=== PATIENT | female | born 1970 | race Caucasian/White ===

== ENCOUNTER 2016-07-28 21:13 | Emergency (ER) | payer MEDICAID, OTHER, SELFPAY ==
[2016-07-28 21:13] VITALS: BMI 29.8
[2016-07-28] MEDS ORDERED: Sodium Chloride 0.9% 1,000 ML IV STA (21:53)
--- NOTE | 2016-07-28 22:13 | ED PDOC ---
HPI: Headache Time Seen by Provider: 07/28/16 21:34 Chief Complaint (Nursing): Headache Chief Complaint (Provider): Headache History Per: Patient History/Exam Limitations: no limitations Onset/Duration Of Symptoms: Days (x3), Waxing/Waning Current Symptoms Are (Timing): Still Present Severity: Moderate Associated Symptoms: Nausea, Vomiting (several episodes, non-bloody). denies: Other (no fever, abdominal pain) Additional Complaint(s): Evelyne Montero is a 45 year old female, with a past medical history of migraines, who presents to the ED on 07/28/16 for the evaluation of a headache that she has experienced over the past 3 days; not considered worst of life. Pain, waxing /waning with b/l localization, is further described as constant, waxing/waning and similar to previous migraines. Some associated nausea and several episodes of non-bloody vomiting also reported, though patient denies fever, abdominal pain or additional medical complaints. Has medicated with Motrin, her usual medication of choice, with only mild relief. Pain is reportedly getting worse, prompting ED visit. PMD: none provided Past Medical History Reviewed: Historical Data, Nursing Documentation, Vital Signs Vital Signs: Last Vital Signs Temp 98.5 F 07/28/16 21:19 Pulse 100 H 07/28/16 21:19 Resp 18 07/28/16 21:19 BP 119/83 07/28/16 21:19 Pulse Ox 97 07/28/16 21:19 - Medical History PMH: Migraine - Surgical History Surgical History: Cholecystectomy, (x1) - Family History Family History: States: Unknown Family Hx - Allergies Allergies/Adverse Reactions: Allergies Allergy/AdvReac Type Severity Reaction Status Date / Time No Known Allergies Allergy Verified 06/25/14 11:00 Review of Systems ROS Statement: Except As Marked, All Systems Reviewed And Found Negative Constitutional: Negative for: Fever Gastrointestinal: Positive for: Nausea, Vomiting (multiple episodes, non-bloody) . Negative for: Abdominal Pain Neurological: Positive for: Headache (similar to previous migraines/not worst of life; constant/waxing-waning) Physical Exam - Reviewed Nursing Documentation Reviewed: Yes Vital Signs Reviewed: Yes - Physical Exam Appears: Positive for: Non-toxic, No Acute Distress, Uncomfortable Head Exam: Positive for: ATRAUMATIC, NORMAL INSPECTION, NORMOCEPHALIC Skin: Positive for: Normal Color, Warm, Dry Eye Exam: Positive for: Normal appearance, EOMI, PERRL ENT: Positive for: Normal ENT Inspection Neck: Positive for: Normal, Painless ROM, Supple Cardiovascular/Chest: Positive for: Regular Rate, Rhythm. Negative for: Murmur Respiratory: Positive for: Normal Breath Sounds. Negative for: Respiratory Distress Gastrointestinal/Abdominal: Positive for: Normal Exam, Soft. Negative for: Tenderness Neurologic/Psych: Positive for: Alert, Oriented - ECG O2 Sat by Pulse Oximetry: 97 (RA) Pulse Ox Interpretation: Normal - Progress Re-evaluation Time: 00:53 Condition: Re-examined, Improved Medical Decision Making Medical Decision Makin:34 Initial Impression: recurrent migraine Initial Plan: * IV NS 1000ml at 1000mls/hr * Reglan 10mg IVP * Toradol 30mg IVP * Reevaluation Scribe Attestation: Documented by Diane Perez, acting as a scribe for Nataliia Morel MD. Provider Scribe Attestation: All medical record entries made by the Scribe were at my direction and personally dictated by me. I have reviewed the chart and agree that the record accurately reflects my personal performance of the history, physical exam, medical decision making, and the department course for this patient. I have also personally directed, reviewed, and agree with the discharge instructions and disposition. Disposition - Clinical Impression Clinical Impression: Headache, Recurrent headache - Patient ED Disposition Is Patient to be Admitted: No Doctor Will See Patient In The: Office Counseled Patient/Family Regarding: Studies Performed, Diagnosis, Need For Followup - Disposition Referrals: [facility] [Outside] Disposition: Routine/Home Disposition Time: 00:54 Condition: GOOD Additional Instructions: Follow up with your PCP and neurologist within 2-3 days. Instructions: Migraine Headache (ED) Print Language: FRENCH
[2016-07-29 01:47] VITALS: BP 123/65; PULSE 79; RESP 17; TEMP 98.2; O2SAT 98
== END 2016-07-29 01:30 | disposition home or self-care (01) ==
LOC: H.ER 21:13
DX: R51 Headache (principal)